=== PATIENT | female | born 1960 | race Caucasian/White ===

== ENCOUNTER 2019-12-26 07:59 | Outpatient (CLI) | payer OTHER ==
--- NOTE | 2019-12-26 08:50 | ULT ---
HEPATIC DOPPLER ULTRASOUND: HISTORY: Pain. COMPARISON: None. TECHNIQUE: Grayscale, color flow, Doppler imaging and spectral wave analysis of the liver is performed. FINDINGS: Pancreas: The head of the pancreas has a normal echotexture. The remainder the pancreas is obscured b y bowel gas. Visualized aorta has a normal caliber and appears to be patent. Visualized IVC is patent. In the left hepatic lobe there is an anechoic focus measuring 2.9 x 2.9 x 3.4 cm, compatible with a c yst. Overall, there is mildly heterogeneous hepatic parenchymal echotexture which may be due to hepatic steatosis or hepatocellular disease. The visualized margin of the hepatic parenchyma is maint ained. No significant nodularity. The spleen has a normal echotexture measuring 9.9 cm in maximum dimension. Limited evaluation the common bile duct. Gallbladder is surgically absent. Hepatic Doppler: There is patency and appropriate directional flow in the left hepatic vein, right he patic vein, middle hepatic vein, main portal vein, right portal vein, left portal vein and hepatic artery. There is patency and appropriate directional flow of the splenic vein and artery. IMPRESSION: 1. Left hepatic lobe cyst. 2. Normal hepatic Doppler. Transcribed Date/Time: 12/26/2019 10:58 AM
== END 2019-12-26 08:00 | disposition home or self-care (01) ==
LOC: BICULT 07:59
PROVIDERS: ATTEND Internal Medicine Gastroenterology
DX: K52.832 Lymphocytic colitis (principal); R10.11 Right upper quadrant pain; R11.0 Nausea; K76.89 Other specified diseases of liver
CPT/HCPCS: 36415; 76705; 80053; 82150; 83690; 85025

== ENCOUNTER 2019-12-28 10:25 | Outpatient (CLI) | payer OTHER ==
--- NOTE | 2019-12-28 14:02 | RAD ---
TWO VIEW CHEST: 12/28/19 HISTORY: Dyspnea. COMPARISON: 07/11/18. The lung rodriguez are clear. No infiltrate. Heart and mediastinum unremarkable. Osseous structures unre markable. Numerous surgical clips again noted overlying both breasts. No interval change. IMPRESSION: No acute finding. POS: [facility]W
== END 2019-12-28 10:26 | disposition home or self-care (01) ==
LOC: RAD 10:25
PROVIDERS: ATTEND Internal Medicine Pulmonary Disease
DX: R06.00 Dyspnea, unspecified (principal)
CPT/HCPCS: 36415; 71046; 82607; 82746

== ENCOUNTER 2020-03-12 00:40 | Emergency (ER) | payer OTHER ==
[2020-03-12] MEDS ORDERED: Acetaminophen 500 MG TAB ONE (01:24)
[2020-03-12] MEDS ORDERED: Ondansetron PF 4 MG/2 ML Vial ONE (02:28)
[2020-03-12 03:22] LABS: #Lymphocytes 1.1 thou/uL (1.20-3.40); #Monocytes 0.3 thou/uL (0.11-0.59); #Neutrophils 7.7 thou/uL (1.40-6.50); %Basophils 0.3 % (0.0-1.0); %Eosinophils 0.3 % (0.0-10.0); %Lymphocytes 11.6 % (21.0-51.0); %Monocytes 3.3 % (0.0-10.0); %Neutrophils 84.6 % (42.0-75.0); Mean Corpuscular HGB CONC 33.6 g/dL (32.0-36.0); Mean Corpuscular Hemoglobin 34.2 pg (27.0-31.0); Mean Platelet Volume 6.4 fL (7.4-10.4); Platelet Count 244 thou/uL (130-400); RBC Distribution Width 12.5 % (11.5-14.5); Red Blood Cell (RBC) Count 4.09 mill/uL (4.20-5.40); White Blood Cell (WBC) Count 9.1 thou/uL (4.8-10.8)
[2020-03-12 03:22] LABS: ALT (SGPT) 30 U/L (8-55); AST (SGOT) 51 U/L (5-34); Albumin 4.3 g/dL (3.4-4.8); Alkaline Phosphatase 83 U/L (40-110); Anion Gap 18 mmol/L (10-20); BUN (Urea Nitrogen) 17 mg/dL (9.8-20.1); Bilirubin, Total 0.7 mg/dL (0.2-1.2); Calc. Creatinine Clearance 0 mL/min (70-130); Calcium 9.5 mg/dL (7.8-10.44); Carbon Dioxide 25 mmol/L (23-31); Chloride 106 mmol/L (98-107); Estimated GFR-MDRD 46; Glucose 147 mg/dL (80-115); Potassium 3.7 mmol/L (3.5-5.1); Protein, Total 7.3 g/dL (6.0-8.3); Sodium 145 mmol/L (136-145)
[2020-03-12] MEDS ORDERED: cefTRIAXone\\ROCEPHIN 2 GM VIAL ONE (03:49)
[2020-03-12 03:55] LABS: Clarity Clear (Clear)
[2020-03-12 03:56] LABS: Bacteria/HPF None Seen HPF (None Seen); Bilirubin Negative (Negative); Blood, Urine Trace (Negative); Glucose, Urine (Dipstick) Normal (Negative); Ketone, Urine Negative (Negative); Leukocyte 75 Leu/uL (Negative); Nitrite Negative (Negative); Protein, Urine (Dipstick) Negative (Neg-Trace); RBC/HPF 0-3 HPF (0-3); Specific Gravity, Urine 1.009 (1.002-1.036); Squamous Epithelial 0-3 HPF (0-3); Urobilinogen Normal mg/dL (Less than 2); WBC/HPF 21-50 HPF (0-3); pH, Urine 6.5 (5.0-9.0)
[2020-03-12 04:32] LABS: Lactic Acid 2.5 mmol/L (0.5-2.2)
== END 2020-03-12 04:45 | disposition home or self-care (01) ==
LOC: ERS 00:40
DX: N10 Acute pyelonephritis (principal); M06.9 Rheumatoid arthritis, unspecified; I10 Essential (primary) hypertension; E78.00 Pure hypercholesterolemia, unspecified; Z79.899 Other long term (current) drug therapy
CPT/HCPCS: 36415; 80053; 81003; 81015; 83605; 85025; 87077; 87086; 87186; 96361; 96365; 96375; J0696; J2405

== ENCOUNTER 2021-12-15 13:23 | Outpatient (CLI) | payer BC ==
[~2021-12-15 13:23] MED LIST: Iopamidol-370 76% 500 ML 1 ML ONE
== END 2021-12-15 13:24 | disposition home or self-care (01) ==
LOC: BICCT 13:23
PROVIDERS: ATTEND Internal Medicine Cardiovascular Disease
DX: R06.01 Orthopnea (principal); R22.0 Localized swelling, mass and lump, head; R22.1 Localized swelling, mass and lump, neck; I51.7 Cardiomegaly; K76.0 Fatty (change of) liver, not elsewhere classified
CPT/HCPCS: 71260; 82565; Q9967

== ENCOUNTER 2021-12-31 13:09 | Outpatient (CLI) | payer BC | END 2021-12-31 13:10 | disposition home or self-care (01) | LOC: BICRAD 13:09 | PROVIDERS: ATTEND Internal Medicine Rheumatology | DX: M25.551 Pain in right hip (principal); M25.512 Pain in left shoulder; M16.0 Bilateral primary osteoarthritis of hip | CPT/HCPCS: 73523 ==

== ENCOUNTER 2022-01-08 12:52 | Outpatient (CLI) | payer BC | END 2022-01-08 12:53 | disposition home or self-care (01) | LOC: RAD 12:52 | PROVIDERS: ATTEND Internal Medicine Critical Care Medicine | DX: R06.00 Dyspnea, unspecified (principal) | CPT/HCPCS: 71046 ==

== ENCOUNTER 2022-10-09 09:41 | Outpatient (CLI) | payer BC | END 2022-10-09 09:42 | disposition home or self-care (01) | LOC: BICRAD 09:41 | PROVIDERS: ATTEND Physical Medicine & Rehabilitation | DX: M25.551 Pain in right hip (principal); M25.552 Pain in left hip ==

== ENCOUNTER 2024-07-31 17:19 | Inpatient (IN) | payer BC, MEDICARE ==
[2024-07-31] MEDS ORDERED: Morphine 4 MG/ML VIAL ONE ×2 (18:53→20:03)
[2024-07-31 19:34] LABS: #Basophils 0.09 10x3/uL (0.0-0.2); %Basophils 0.8 % (0.0-1.0); %Eosinophils 0.7 % (0.0-10.0); %Lymphocytes 21.4 % (21.0-51.0); %Monocytes 6.7 % (0.0-10.0); Hematocrit 45.7 % (36.0-47.0); Hemoglobin 15.7 g/dL (12.0-16.0); Mean Corpuscular HGB CONC 34.4 g/dL (32.0-36.0); Mean Corpuscular Hemoglobin 30.8 pg (27.0-31.0); Mean Corpuscular Volume 89.6 fL (78.0-98.0); Mean Platelet Volume 9.2 fL (7.4-10.4); Platelet Count 275 10x3/uL (130-400); RBC Distribution Width 14.9 % (11.5-14.5)
[2024-07-31 19:51] LABS: ALT (SGPT) 11 U/L (8-55); AST (SGOT) 19 U/L (5-34); Albumin 3.8 g/dL (3.4-4.8); Alkaline Phosphatase 100 U/L (40-110); Anion Gap 24 mmol/L (10-20); BUN (Urea Nitrogen) 24 mg/dL (9.8-20.1); Bilirubin, Total 0.3 mg/dL (0.2-1.2); Calc. Creatinine Clearance 0 mL/min (70-130); Calcium 9.5 mg/dL (7.8-10.44); Carbon Dioxide 20 mmol/L (23-31); Chloride 99 mmol/L (98-107); Estimated GFR 30; Globulin 3.7 g/dL (2.4-3.5); Glucose 139 mg/dL (80-115); Protein, Total 7.5 g/dL (5.8-8.1); Sodium 139 mmol/L (136-145)
[2024-07-31] MEDS ORDERED: Gabapentin 300 MG CAP ONE (20:06)
[2024-07-31] MEDS ORDERED: Dextrose 5% in Water 1,000 ML IV PRN (21:11)
[2024-07-31] MEDS ORDERED: Glucagon 1 MG/ML KIT IM PRN (21:11)
[2024-07-31] MEDS ORDERED: Dextrose 50% Abboject 50 ML SYRINGE SLOW IVP PRN (21:11)
[2024-07-31] MEDS ORDERED: Ondansetron PF 4 MG/2 ML Vial IVP PRN (21:11)
[2024-07-31] MEDS ORDERED: hydrALAZINE 20 MG/ML VIAL SLOW IVP PRN (21:11)
[2024-07-31] MEDS ORDERED: Morphine 2 MG/ML VIAL ONE (21:54)
[2024-07-31] MEDS: traMADol HCl 50 MG TAB PO PRN (22:59)
[2024-07-31] MEDS: Methocarbamol 500 MG TAB PO PRN (23:00)
[2024-07-31 23:07] VITALS: BMI 25.7
[2024-07-31] MEDS: Morphine 2 MG/ML VIAL SLOW IVP PRN (23:47)
[2024-08-01] MEDS: HYDROmorphone 0.5 MG/0.5 ML SYRINGE SLOW IVP SCH (03:42)
[2024-08-01] MEDS: Lactated Ringer's 1,000 ML IV SCH (03:42)
[2024-08-01 05:37] LABS: %Basophils 0.8 % (0.0-1.0); %Eosinophils 1.8 % (0.0-10.0); %Lymphocytes 21.6 % (21.0-51.0); %Monocytes 11.6 % (0.0-10.0); %Neutrophils 63.7 % (42.0-75.0); Hematocrit 44.1 % (36.0-47.0); Hemoglobin 14.9 g/dL (12.0-16.0); Mean Corpuscular HGB CONC 33.8 g/dL (32.0-36.0); Mean Corpuscular Hemoglobin 30.1 pg (27.0-31.0); Mean Corpuscular Volume 89.1 fL (78.0-98.0); Mean Platelet Volume 9.3 fL (7.4-10.4); Platelet Count 256 10x3/uL (130-400); Red Blood Cell (RBC) Count 4.95 mill/uL (4.20-5.40)
[2024-08-01 05:59] LABS: Anion Gap 18 mmol/L (10-20); BUN (Urea Nitrogen) 28 mg/dL (9.8-20.1); Calc. Creatinine Clearance 35 mL/min (70-130); Calcium 8.6 mg/dL (7.8-10.44); Carbon Dioxide 25 mmol/L (23-31); Chloride 96 mmol/L (98-107); Estimated GFR 33; Glucose 119 mg/dL (80-115); Potassium 3.2 mmol/L (3.5-5.1); Sodium 136 mmol/L (136-145)
[2024-08-01] MEDS ORDERED: CEFAZOLIN 2 GM in Sodium Chloride 0.9% 100 ML IVPB SCH (06:45)
[2024-08-01] MEDS: Pantoprazole DR 40 MG TAB PO SCH (07:53)
[2024-08-01] MEDS: FLU (Fluad Triv) TS24-25 (65UP)/MF59C/PF 45 MCG/0.5 ML Syringe IM ONE (07:53)
[2024-08-01] MEDS: Folic Acid 1 MG TAB PO SCH (07:53)
[2024-08-01] MEDS: Acetaminophen 500 MG TAB PO PRN (07:56)
[2024-08-01] MEDS: Carvedilol 6.25 MG TAB PO SCH (07:56)
[2024-08-01] MEDS: tiZANidine HCl 4 MG TAB PO SCH (07:57)
[2024-08-01] MEDS: Gabapentin 300 MG CAP PO PRN (11:42)
[2024-08-01] MEDS ORDERED: fentaNYL PF 100 MCG/2 ML SYRINGE ONE (14:11)
[2024-08-01] MEDS ORDERED: Midazolam HCl 2 mg/2 ml Vial ONE (14:11)
[2024-08-01] MEDS ORDERED: Lidocaine 1% PF 5 ML VIAL ONE (14:20)
[2024-08-01] MEDS ORDERED: PROPOFOL 20 ML ONE (14:20)
[2024-08-01] MEDS ORDERED: CEFAZOLIN 2 GM VIAL ONE (14:21)
[2024-08-01] MEDS ORDERED: Bupivacaine HCl 0.5%/Epinephrine 1:200,000/PF 30 ml Vial ONE (14:25)
[2024-08-01] MEDS ORDERED: Bupivacaine PF 0.5% 30 ML VIAL ONE (14:52)
[2024-08-01] MEDS ORDERED: Ropivacaine 0.5% HCl/PF (150 MG/30 ML VIAL) ONE (14:52)
[2024-08-01] MEDS ORDERED: ePHEDrine Sulfate 50 MG/10 ML VIAL ONE (14:59)
[2024-08-01] MEDS ORDERED: Ondansetron PF 4 MG/2 ML Vial IVP PRN (15:00)
[2024-08-01] MEDS ORDERED: Ropivacaine 0.2% 550 ML 550 ML NERVE BLCK SCH (15:00)
[2024-08-01] MEDS ORDERED: Promethazine HCl 25 MG/ML VIAL IM PRN (15:00)
[2024-08-01] MEDS ORDERED: PHENYLEPHRINE-NS 100 MCG/ML 10 ML SYRINGE ONE (15:00)
[2024-08-01] MEDS: CEFAZOLIN 2 GM in Sodium Chloride 0.9% 100 ML IVPB SCH (21:40)
[2024-08-02] MEDS: oxyCODONE 5 MG TAB PO PRN (08:15)
[2024-08-02] MEDS: Enoxaparin 30 MG (0.3 mL) SYRINGE SC SCH (09:59)
[2024-08-02 13:35] LABS: #Basophils 0.04 10x3/uL (0.0-0.2); %Basophils 0.4 % (0.0-1.0); %Lymphocytes 11.8 % (21.0-51.0); %Monocytes 7.7 % (0.0-10.0); %Neutrophils 78.8 % (42.0-75.0); Hematocrit 35.6 % (36.0-47.0); Hemoglobin 11.9 g/dL (12.0-16.0); Mean Corpuscular HGB CONC 33.4 g/dL (32.0-36.0); Mean Corpuscular Hemoglobin 30.6 pg (27.0-31.0); Mean Corpuscular Volume 91.5 fL (78.0-98.0); Mean Platelet Volume 9.5 fL (7.4-10.4); Platelet Count 182 10x3/uL (130-400); RBC Distribution Width 14.6 % (11.5-14.5); Red Blood Cell (RBC) Count 3.89 mill/uL (4.20-5.40)
[2024-08-02 13:57] LABS: Anion Gap 12 mmol/L (10-20); BUN (Urea Nitrogen) 18 mg/dL (9.8-20.1); Calc. Creatinine Clearance 65 mL/min (70-130); Calcium 8.2 mg/dL (7.8-10.44); Carbon Dioxide 25 mmol/L (23-31); Chloride 99 mmol/L (98-107); Estimated GFR 70; Glucose 192 mg/dL (80-115); Potassium 3.9 mmol/L (3.5-5.1); Sodium 132 mmol/L (136-145)
[2024-08-02] MEDS: fentaNYL 50 mcg/mL 1 mL Vial SLOW IVP PRN (17:19)
[2024-08-02] MEDS: Lactated Ringer's 1,000 ML IV SCH (18:28)
[2024-08-03] MEDS: Zolpidem Tartrate 5 MG TAB PO PRN (03:20)
[2024-08-03 05:48] LABS: #Basophils 0.05 10x3/uL (0.0-0.2); %Basophils 0.6 % (0.0-1.0); %Eosinophils 3.3 % (0.0-10.0); %Monocytes 11.1 % (0.0-10.0); %Neutrophils 61.6 % (42.0-75.0); Hematocrit 31.7 % (36.0-47.0); Hemoglobin 10.5 g/dL (12.0-16.0); Mean Corpuscular HGB CONC 33.1 g/dL (32.0-36.0); Mean Corpuscular Hemoglobin 30.2 pg (27.0-31.0); Mean Corpuscular Volume 91.1 fL (78.0-98.0); Mean Platelet Volume 9.5 fL (7.4-10.4); Platelet Count 153 10x3/uL (130-400); RBC Distribution Width 14.5 % (11.5-14.5); Red Blood Cell (RBC) Count 3.48 mill/uL (4.20-5.40)
[2024-08-03] MEDS: Folic Acid 1 MG TAB PO SCH (09:46)
[2024-08-03] MEDS ORDERED: oxyCODONE 5 MG TAB PO PRN (11:20)
[2024-08-03] MEDS: carBAMazepine 200 MG TAB PO SCH (12:24)
[2024-08-03] MEDS: Acetaminophen 500 MG TAB PO SCH (12:25)
[2024-08-03] MEDS: Ketorolac Tromethamine 30 MG (1 mL) VIAL IVP PRN (12:26)
[2024-08-03] MEDS: oxyCODONE 5 MG TAB PO PRN (21:20)
[2024-08-04] MEDS ORDERED: Ipratropium/Albuterol 3 ML NEB NEB PRN (06:43)
[2024-08-04] MEDS: Ipratropium/Albuterol 3 ML NEB NEB SCH (07:22)
[2024-08-04] MEDS: Enoxaparin 40 MG (0.4 mL) SYRINGE SC SCH (07:50)
[2024-08-04] MEDS ORDERED: Promethazine HCl 25 MG/ML VIAL IM PRN (12:00)
[2024-08-04] MEDS ORDERED: Ondansetron PF 4 MG/2 ML Vial IVP PRN (12:00)
[2024-08-04] MEDS ORDERED: Zolpidem Tartrate 5 MG TAB PO PRN (12:00)
[2024-08-04] MEDS: Ropivacaine 0.2% 550 ML 550 ML NERVE BLCK SCH (12:31)
[2024-08-04 13:12] VITALS: BP 145/86; TEMP 97.1
[2024-08-04] MEDS ORDERED: Mometasone 200 MCG/Formoterol 5 MCG 120 PUFF INHALER INH SCH (18:30)
== END 2024-08-04 13:17 | disposition home or self-care (01) | DRG 493 ==
LOC: ERS 17:19 → SURG B 21:20
PROVIDERS: ADMIT Surgery; ATTEND Surgery
PROC: 0QSK04Z Reposition Left Fibula with Internal Fixation Device, Open Approach (ICD-10-PCS; principal; 2024-08-01)
DX: S82.852A Displaced trimalleolar fracture of left lower leg, initial encounter for closed fracture (principal); E87.20 Acidosis, unspecified; N17.9 Acute kidney failure, unspecified; M48.00 Spinal stenosis, site unspecified; E11.42 Type 2 diabetes mellitus with diabetic polyneuropathy; M06.9 Rheumatoid arthritis, unspecified; W19.XXXA Unspecified fall, initial encounter; I12.9 Hypertensive chronic kidney disease with stage 1 through stage 4 chronic kidney disease, or unspecified chronic kidney disease; I25.10 Atherosclerotic heart disease of native coronary artery without angina pectoris; E66.01 Morbid (severe) obesity due to excess calories; N18.30 Chronic kidney disease, stage 3 unspecified; Z68.25 Body mass index [BMI] 25.0-25.9, adult; J45.909 Unspecified asthma, uncomplicated; Z90.710 Acquired absence of both cervix and uterus; Z85.3 Personal history of malignant neoplasm of breast; Z79.82 Long term (current) use of aspirin; Z79.891 Long term (current) use of opiate analgesic; Z79.899 Other long term (current) drug therapy
CPT/HCPCS: 27816; 36415; 71045; 80048; 80053; 82010; 85025; 94640; 96374; 96376; A4306; C1713; G0390; J0665; J1171; J1650; J1885; J2250; J2272; J2704; J2795; J3010; J7120; J7620